=== PATIENT | female | born 2005 | race Caucasian/White ===

== ENCOUNTER 2025-02-05 10:15 | Outpatient (CLI) | payer OTHER, SELFPAY ==
--- NOTE | ~2025-02-05 | US_ITS ---
EXAMINATION: US OB <=14 wk fetus w TV DATE: 02/05/2025 12:26 INDICATION: Uncertain dating of during first trimester TECHNIQUE: Real-time pelvic ultrasound utilizing both a transvaginal and transabdominal probe was pe rformed. The interpreting radiologist was not present for the study. COMPARISON: None. FINDINGS: The uterus measures 7.9 x 5.2 x 3.4 cm. There is an intrauterine gestational sac. A yolk sac and fet al pole are identified. The crown rump length measures 2 mm, which correlates with an estimated gesta tional age of 5 weeks and 5 days. heart motion is identified measuring 83 beats per minute (bpm ) by M-mode Doppler. 8 x 5 x 5 mm hypoechoic region caudal margin of the gestational sac suspicious f or small subchronic hematoma. The right ovary measures 3.5 x 2.7 x 2.0 cm. The left ovary measures 3.9 x 2.6 x 2.3 cm. Vascular adrian w identified in both ovaries on color Doppler. There are also a few subcentimeter anechoic bilateral ovarian follicles. There is no free fluid in the pelvis. IMPRESSION: 1. Single living fetus with heart rate of 83 bpm. 2. Gestational age by ultrasound of 5 weeks 5 day(s) +/- 4 day(s) with ultrasound estimated date of delivery (SANKET) of 10/03/2025. 2. Possible small subchorionic hematoma. Reviewed, dictated and finalized at location A. IMPRESSION: 1. Single living fetus with heart rate of 83 bpm. 2. Gestational age by ultrasound of 5 weeks 5 day(s) +/- 4 day(s) with ultraso und estimated date of delivery (SANKET) of 10/03/2025. 2. Possible small subchorionic hematoma.
== END 2025-02-05 10:16 | disposition home or self-care (01) ==
PROVIDERS: PCP Emergency Medicine; Visit Provider Obstetrics & Gynecology Gynecology
DX: O26.859 Spotting complicating pregnancy, unspecified trimester (principal); Z3A.01 Less than 8 weeks gestation of pregnancy
CPT/HCPCS: 36415; 76801; 76817; 84702; 86850; 86900; 86901

== ENCOUNTER 2025-02-12 10:51 | Outpatient (CLI) | payer OTHER, SELFPAY ==
--- NOTE | ~2025-02-12 | US_ITS ---
FIRST TRIMESTER ULTRASOUND 02/12/2025 10:53 CDT Ordering provider: Mariluz Joseph MD History: . subchronic hematoma 1st trimester . Comparison: None. FINDINGS: INTRAUTERINE GESTATIONAL SAC: Present. YOLK SAC: Present. POLE: Present. Measures 0.8 cm equivalent to 6 weeks and 5 days. SANKET is October 03, 2025. heart rate is 122 bpm. Subchorionic hemorrhage is seen measuring 1 x 1 x 0.9 cm. GESTATIONAL AGE BY TODAY'S US: 6 weeks and 5 days. UTERUS: The uterus measures 9x 5.7x 4.1 cm. in length which is within normal limits. No myometrial ma sses. FREE FLUID: None. OVARIES: Normal in size with the right measuring 2.6x 2.6x 2.6 cm. and the left measuring 2.8x 2.3x 2 .3 cm. Doppler flow is demonstrated within both ovaries. ADNEXAL MASSES: None. IMPRESSION: Single live intrauterine of 6 weeks and 5 days. SANKET is October 03, 2025. Subchorionic hemorrhage is seen measuring 1 x 1 x 0.9 cm. Reviewed, dictated and finalized at location A. IMPRESSION: Single live intrauterine of 6 weeks and 5 days. SANKTE is October 03 026. Subchorionic hemorrhage is seen measuring 1 x 1 x 0.9 cm.
== END 2025-02-12 10:52 | disposition home or self-care (01) ==
LOC: GOSHIMG 10:52
PROVIDERS: PCP Obstetrics & Gynecology Gynecology; Visit Provider Obstetrics & Gynecology Gynecology
DX: O36.8910 Maternal care for other specified fetal problems, first trimester, not applicable or unspecified (principal); Z3A.00 Weeks of gestation of pregnancy not specified
CPT/HCPCS: 76801; 76817

== ENCOUNTER 2025-02-14 06:23 | Outpatient (RCR) | payer OTHER, SELFPAY ==
--- OUTSIDE RECORDS SUMMARY | 2025-02-12 14:34 | XMS_ITS | Continuity of Care Document ---
Author Organization [facility] Address [address] [place] [address] Phone Care Team Providers Care General Superintendent Name Role Phone Lopez Hodges MD Unavailable Unavailable Allergies, Adverse Reactions, Alerts Substance Reaction Status Criticality No Known Allergies Active No Inform ation Procedures Procedure Date PREV VISIT, NEW, AGE 18-39 OFFICE/OUTPATIENT VISIT, [facility] Advance Directives Directive Yes / No Effective Date File Name No Information Encounters Encounter Description Practice Location Reason(s) For Visit Diagnoses Date Provider Providers Copied on Encounter PREV VISIT, NEW, AGE 18-39 [facility], [address], [place], [id number], [place] tel:[phone] [facility] physical (chief complaint) Encounter for general adult medical exam w abnormal findingsOther specified epidermal thickeningMenorrhag ia [address]. [address], [address], [place], [id number] , [place]. tel:[phone] Family History Family Member Type Diagnosis Age At Onset Mother Problem Alive and well Brother Problem Alive and well Father Problem Alive and well Payers Payer name Insurance type Covered constitution party ID Authoriza tion(s) No Information Social History Type Description Quantity Date Captured Comments Alcohol Use Details No Caffeine Use Details Unknown Tobacco Use Status Current non-smoker Smoking Status Never smoker Non-Smoking Tobacco Use Details : No Details Available : No Details Available Sex Female Vital Signs Date / Time: Height Weight BMI Pulse Rate Blood Pressure Temperature Respiratory Rate Body Surface Area Head Circumference BMI percentile Pulse Ox Inhaled Ox 2:53 PM 67.00 in 167.40 lbs 26.2 2 kg/m eter (2) 77 /min 110/60 mm[Hg] 97.7 F 16 /min 84 Chief Complaint And Reason For Visit From encounter dated '11/30/2023 14:20'. physical (chief complaint). Description: Pt needs annual physical Pt is getting son and shewants to get a HALL CLEANER exam by HALL CLEANER soon .Pt has regular period without any HALL CLEANER issue. Pt also has chronic bilateral arm rough skin. Pt denies any itching. Pt denies any dry skin pt will get and she wants to see dermatology to make the skin better. Pt denies any other complaints. Pt also has heavy period. Plan Of Treatment Date Type Action Status Referral Ordered: Gynecology (related to Menorrhagia) ordered Referral Ordered: Dermatology (related to Other specified epidermal thickening) ordered Referral Ordered: Referrals: Gynecology. Evaluate and treat ordered Referral Ordered: Referrals: Dermatology. Evaluate and treat ordered History Of Present Illness Encounter Date Complaint History Of Prese nt Illness physical Pt needs annual physical Pt is getting son and she wants to get a HALL CLEANER exam by HALL CLEANER soon .Pt has regular period without any HALL CLEANER issue. Pt also has chronic bilateral arm rough skin. Pt denies any itching. Pt denies any dry skin pt will get and she wants to see dermatology to make the skin better. Pt denies any other complaints. Pt also has heavy period. Instructions Date Instruction Additional Infor mation No Information Assessments Type Assessment Date assessment Encounter for general adult medi harris exam w abnormal findings assessment Other specified epidermal thicke calista assessment Menorrhagia Mental Status Date Cognitive Assessment Orientation - [place] ed to time, place, person, situation.
--- OUTSIDE RECORDS SUMMARY | 2025-02-12 14:34 | XMS_ITS | Clinical Summary ---
Author Organization [facility] Address [address] [place] [address] Care Team Providers Care Drop Hammer Set Up Operator Name Role Phone Violeta Crowe MD Primary Care Provider [phone] Source Comments [facility],non-owned Affiliates and Associated Physician Practices is amultiple site organization consisting of ambulatory clinics and hospital sitesin [place], [place], [place] and [place]. This disclosure is being madepursuant to the Care Everywhere program and may not contain all information available regarding this patient. Last updated 18.[facility] Allergies No known active allergies Medications * Be aware that medications may not be up to date on this document. Alwaysverify current medications with the patient. triamcinolone acetonide (KENALOG) 0.1 % creamIndications :Flexural atopic dermatitis Apply to eczema twice daily as needed for flares. 30 days supply. 45 g 2 08/10/2019 Active Active Problems Problem Noted Date Diagnosed Date Displaced fracture of proxim al phalanx of right great toe with routine healing 02/22/2018 Closed fracture of proximal phalanx of right gre at toe 11/08/2017 Family History Medical History Relation Name Comments Asthma Neg Hx CVA Neg Hx Cancer - Breast Neg Hx Cancer - Other Neg Hx Cancer - Skin, Melanoma Neg Hx Cancer - Skin, Non Melanoma Neg Hx Eczema Neg Hx Hemophilia Neg Hx Psoriasis Neg Hx Social History Tobacco Use Types Packs/Day Years Used Date Smoking Tobacco: Never Smokeless Tobacco: Never Comments Unknown Sex and Gender Information Value Date Recorded Sex Assigned at Not on file Legal Sex Female 8:41 AM CDT Gender Identity Not on file Sexual Orientation Not on file Last Filed Vital Signs Vital Sign Reading Time Taken Comments Blood Pressure - - Pulse - - Temperature - - Respiratory Rate - - Oxygen Saturation - - Inhaled Oxygen Concentration - - Weight 83.3 kg (183 lb 10.3 oz) 11/08/2017 2:49 PM CDT Height 167.5 cm (5' 5.95) 11/08/2017 2:49 PM CD T Body Mass Index 29.69 11/08/2017 2:49 PM CDT Plan of Treatment Health Maintenance Due Date Last Done Comments HIV SCREENING 2019 HPV VACCINE (1 - 3-dose series) 2019 CHLAMYDIA/GONORRHEA SCREENING 2020 MENINGOCOCCAL (Group B) VACC INE SHARED DECISION-MAKING (1 of 2 - Standard) 2020 HEPATITIS C SCREENING 03/28/2022 DTAP/TDAP/TD VACCINES (1 - Tdap) 2023 HEPATITIS B VACCINE (1 of 3 - 19+ 3-dose series) 2023 COVID-19 VACCINE (1 - 2023-2 5 season) 2024 DEPRESSION SCREENING 08/16/2024 INFLUENZA VACCINE (Season Ended) 2025 ZOSTER VACCINE (1 of 2) 2054 HIB VACCINE Aged Out No longer eligi ble based on patient's age to complete this topic MENINGOCOCCAL GROUPS A/C/Y/W VACCINE Aged Out No longer eligible b ased on patient's age to complete this topic PNEUMOCOCCAL VACCINE Aged Out No long er eligible based on patient's age to complete this topic Insurance [facility] Care Teams Drop Hammer Set Up Operator Relationship Specialty Start Date End Date Violeta Crowe MD PCP - General Pediatrics 11/04/17
[2025-02-14] MEDS: RHO(D) IMMUNE GLOBULIN 300 MCG/2 ML SYRINGE IM (12:51)
== END 2025-02-14 06:30 | disposition home or self-care (01) ==
LOC: ANHOBOP 06:23
PROVIDERS: PCP Emergency Medicine; Visit Provider Obstetrics & Gynecology Gynecology
DX: Z29.13 Encounter for prophylactic Rho(D) immune globulin (principal)
CPT/HCPCS: 36415; 85461; 86850; 86900; 86901; 90384; 96372; 99199; J2790

== ENCOUNTER 2025-03-12 12:30 | Outpatient (CLI) | payer OTHER, SELFPAY ==
--- NOTE | ~2025-03-12 | US_ITS ---
EXAMINATION: US OB <= 14 weeks fetus DATE: 03/13/2025 11:43 CDT INDICATION: Subchorionic hemorrhage for follow-up COMPARISON: 02/12/2025 TECHNIQUE: Real-time transabdominal obstetric ultrasound. FINDINGS: The uterus measures 6.9 x 8.8 x 10.0 cm. A gestational sac is identified within the uterus, to the right of midline. No subchorionic hemorrhage is identified on the submitted static imaging. A pole is identified, with a crown-rump length that measures 4.2 cm, corresponding to an approx imate gestational age of 11 weeks and 1 day. cardiac activity is identified at a rate of 174 bpm. The right ovary measures 3.3 x 3.2 x 1.7 cm. Despite prolonged interrogation, the left ovary was not visualized Estimated date of delivery by ultrasound is 09/30/2025 IMPRESSION: Single intrauterine gestation with an approximate gestational age of 11 weeks and 1 day, with c ardiac activity identified. Interval resolution of the subchorionic hemorrhage detected on prior study. Reviewed, dictated and finalized at location A. IMPRESSION: Single intrauterine gestation with an approximate gestational age of 11 weeks a nd 1 day, with cardiac activity identified. Interval resolution of the subchorionic hemorrhage detected on prior study.
== END 2025-03-12 12:31 | disposition home or self-care (01) ==
PROVIDERS: PCP Obstetrics & Gynecology Gynecology; Visit Provider Obstetrics & Gynecology Gynecology
DX: O36.8910 Maternal care for other specified fetal problems, first trimester, not applicable or unspecified (principal); Z3A.11 11 weeks gestation of pregnancy
CPT/HCPCS: 76801

== ENCOUNTER 2025-05-14 08:30 | Outpatient (CLI) | payer OTHER, SELFPAY ==
--- NOTE | ~2025-05-14 | US_ITS ---
EXAMINATION: US OB /maternal detail DATE: 05/14/2025 09:00 INDICATION: Anatomy TECHNIQUE: Real-time transabdominal obstetric ultrasound. FINDINGS: There is a single living fetus in vertex presentation. The placenta is posterior without placenta previa. cardiac activity and movement is noted with a heart rate of 156 beats per minute. The amniotic fluid volume is subjectively within normal limits. The following biometric data were obtained: BPD: 4.56cm corresponds to gestational age 19 weeks 5 days. Head circumference: 16.90cm corresponds to gestational age 19 weeks 6 days. Abdominal circumference: 13.8cm corresponds to gestational age 19 weeks 2 days. Femur length: 3.18cm corresponds to gestational age 9 weeks days. Estimated weight: 299grams +/- 45grams.] IMPRESSION: 1. Single living fetus in vertex presentation with an estimated gestational age of 19 weeks and 4 days by inititial ultrasound. Appropriate interval growth. 2. Normal placenta. Reviewed, dictated and finalized at location Q. IMPRESSION: 1. Single living fetus in vertex presentation with an estimated gestational ag e of 19 weeks and 4 days by inititial ultrasound. Appropriate interval g rowth. 2. Normal placenta.
== END 2025-05-14 08:31 | disposition home or self-care (01) ==
PROVIDERS: PCP Obstetrics & Gynecology Gynecology; Visit Provider Obstetrics & Gynecology Gynecology
DX: Z36.9 Encounter for antenatal screening, unspecified (principal); Z3A.19 19 weeks gestation of pregnancy
CPT/HCPCS: 76805

== ENCOUNTER 2025-06-13 14:42 | Observation (INO) | payer OTHER, SELFPAY ==
--- NOTE | ~2025-06-13 | US_ITS ---
EXAMINATION: US renal BI, 06/13/2025 15:40 CDT HISTORY: pain Comparison: None Technique: Macedo-scale and color Doppler images were obtained. Findings: KIDNEYS: Renal cortices intact, no solid masses, cysts or calculi, no hydronephrosis. Right Kidney: Right kidney 13 x 6.4 x 5.9 cm, normal. Left Kidney: Left kidney 12.8 x 7.9 x 5.8 cm, normal. Bladder: The bladder is unremarkable. . Impression: No acute abnormality. Reviewed, dictated and finalized at location P. Impression: No acute abnormality.
[2025-06-13 15:16] VITALS: BP 109/52; PULSE 70
[2025-06-13 15:29] LABS: Add Urine Microscopic? NO; Appearance Urine Clear (Clear); Glucose Urine UA Negative (Negative); Leukocyte Esterase Ur Negative LEU/UL (Negative); Nitrate Urine Negative (Negative); Non Pathogenic Casts 0-2; Specific Grav Ur 1.009 (1.001-1.035)
[2025-06-13 15:31] VITALS: BP 112/68; PULSE 76
--- NOTE | 2025-06-13 15:31 | OBADM ---
This patient, Sayra Linares, admitted to the OB room OB Post 117 for observation. Patient/family oriented to hospital policies and general routines including ID bracelet, bed and alarms, visiting hours, pain management, procedures, bathroom and other care routines, personal items, smoking policy, room service/diet, and visiting hours. Patient/Family are encouraged to report perceived risks to care and to ask questions if they do not understand what they are told or what they should do.
[2025-06-13 15:46] VITALS: BP 114/58; PULSE 100
--- NOTE | 2025-06-13 17:03 | PC.NURSE ---
Dr. Joseph called to check on pt. Informed of U/S report. Pt's pain is down to a 2 currently. Pt didn't want to take the Tylenol due to the concern about Tylenol and increased risk of autism she has heard in the news. Order received for discharge. wants pt told that it is OK to take Tylenol and there is no medical evidence that Tylenol increases the risk of autism.
--- NOTE | 2025-06-15 09:04 | P.PNOB_ITS ---
OB - Triage/Final Diagnosis Visit Information Reason for evaluation: other (back pain) Comments/Additional reasons for admission: I have assessed the risk for this patient, Sayra Linares, and determined that she would benefit from observation care. Evaluation Laboratory results: Laboratory Tests 06/13/25 15:20 Urine Color Yellow Urine Appearance Clear Urine pH 7.5 Ur Specific [place] 1.009 Urine Protein Negative Urine Glucose (UA) Negative Urine Ketones 1+ H Ur Blood (Man) Non-hemolyzed trace H Urine Nitrate Negative Urine Bilirubin Negative Urine Urobilinogen 0.2 Ur Leukocyte Esterase Negative Urine RBC 0-2 Urine WBC 0-5 Ur Squamous Epith Cells None seen Urine Bacteria None seen Urine Casts 0-2
== END 2025-06-13 18:03 | disposition home or self-care (01) ==
PROVIDERS: Admitting Provider Obstetrics & Gynecology Gynecology; PCP Emergency Medicine; Visit Provider Obstetrics & Gynecology Gynecology
DX: O26.892 Other specified pregnancy related conditions, second trimester (principal); M54.9 Dorsalgia, unspecified; Z3A.24 24 weeks gestation of pregnancy
CPT/HCPCS: 76770; 81003; 87086; G0378; G0379

== ENCOUNTER 2025-07-17 19:38 | Emergency (ER) | payer OTHER, SELFPAY ==
[2025-07-17 19:44] VITALS: BP 114/57; PULSE 94; RESP 18; TEMP 36.3; O2SAT 100
--- NOTE | 2025-07-17 19:54 | ED_ITS ---
HPI - URI/Sore Throat General Chief Complaint: Upper Respiratory Infection Stated Complaint: SOB/Cough Time Seen by Provider: 07/17/25 19:40 Source: patient and RN notes reviewed Mode of arrival: ambulatory Limitations: no limitations History of Present Illness HPI Narrative: 20-year-old female patient presents to the [facility] complaining of upper respiratory symptoms for 3 days. Patient reports cough, intermittent shortness of breath, congestion, sore throat. Patient denies any other upper respiratory symptoms, chest pain, nausea vomiting, difficulty breathing, fevers body aches, chills, abdominal pain, or other symptoms. Patient is currently 29 weeks . Denies any complications. Patient is a taking [id number] to help with symptoms. Patient denies any other significant [facility] medical history. Related Data Home Medications ?Medication ?Instructions ?Recorded ?Confirmed ?Last Taken ?Type aspirin 81 mg tablet 81 mg PO DAILY 06/13/2510/1006/12/25 History ergocalciferol (vitamin D2) 1,250 50,000 unit PO WEEKL Y 06/13/25 07/17/25 06/06/25 History mcg (50,000 unit) capsule vit no.95-ferrous 1 tablet PO DAILY 06/13/25 07/17/25 06/12/25 History fumarate 28 mg-folic acid 800 mcg tablet () Allergies Allergy/AdvReac Type Severity Reaction Status Date / Time No Known Allergies Allergy Unknown Verified 07/17/25 19:43 Review of Systems Review of Systems: CONSTITUTIONAL: Denies fever, chills, or sweats. EYES: Denies visual changes, redness, or discharge. ENT: Denies rhinorrhea, or otalgia. Positive for congestion and sore throat CARDIOVASCULAR: Denies chest pain, palpitations, or edema. RESPIRATORY: Positive for cough and dyspnea. GASTROINTESTINAL: Denies abdominal pain, nausea, vomiting, or diarrhea. GENITOURINARY: Denies dysuria, vaginal bleeding, or hematuria. SKIN: Denies rash or itching. MUSCULOSKELETAL: Denies back pain, joint pain, or myalgia. NEUROLOGIC: Denies headache, numbness, or weakness. PSYCHIATRIC: Denies anxiety or depression. All other systems reviewed are negative, except as documented in HPI. [facility] Social History Social History Lack of Transportation: No Lack of Food: Never True Current Housing: I Have Housing Concerned About Future Housing: No Difficulty Paying Gas/Electric Bills: No Difficulty Paying for Meds: No Currently Unemployed: No Education: Don't Know Difficulty w/ Childcare or Family Care: No Comments At the time of my signature, I reviewed and agree with the nursing past medical, surgical, social, and family history. There is no relevant family history pertinent to the patient complaint. Exam Narrative: GENERAL: This is a well-nourished, well-developed adult, in no apparent distress. They are non ill-appearing, nontoxic appearing. Patient's . HEAD: normocephalic, atraumatic. EYES: Sclera clear/white. Conjunctiva normal. Vision is grossly intact. Extraocular movements intact EARS: External ears normal, auditory canals clear and without drainage, TMs normal without perforation. Hearing grossly intact. NOSE: External nose normal with no obvious nasal discharge, nasal turbinates erythema, no swelling, no rhinorrhea. THROAT: Mucous membranes moist, posterior pharynx erythemic without swelling. Uvula midline. Postnasal drip present. NECK: Neck supple, mild cervical lymphadenopathy, no masses or thyromegaly. CARDIOVASCULAR: Regular rate and rhythm without murmurs, gallops, or rubs. RESPIRATORY: Clear to auscultation. Breath sounds equal bilaterally. No wheezes, rales, or rhonchi. Respiratory exam SKIN: warm, Dry, intact with no suspicious lesions or rash, good texture and turgor. NEURO: awake, alert, and oriented to person, place and time. There were no obvious focal neurologic abnormalities. EXTREMITIES: No joint tenderness, effusion, or edema noted. BACK: Nontender without deformity. Course Course Level of Care: Express Care Visit Vital Signs Vital signs: Vital Signs Oxygen Delivery Room Air 07/17/25 19:40 Temperature 97.4 F L 07/17/25 19:44 Pulse Rate 94 07/17/25 19:44 Respiratory Rate 18 07/17/25 19:44 Blood Pressure 114/57 L 07/17/25 19:44 Pulse Oximetry 100 07/17/25 19:44 Oxygen Delivery Room Air 07/17/25 19:40 [facility] MDM Narrative Medical decision making narrative: Rapid COVID, flu, strep are are negative. Throat culture is pending. Likely viral upper respiratory infection. Discussed supportive care. PERC score 0. Discussed physical exam findings. Advised supportive measures and signs/symptoms to go to the ER. Pt is appropriate for outpt treatment and f/u. Differential Diagnosis Differential Diagnosis: Differential diagnostic considerations for upper respiratory infection include upper respiratory infection, croup, otitis media, sinusitis, viral infection, bronchitis, influenza, pharyngitis, strep, uvulitis. Lab Data MDM Lab Attestation statement: I personally reviewed the patient's lab results. Labs: Lab Results 07/17/25 Range/Units 20:07 POC Influenza A Ag Negative (Negative) POC Influenza B Ag Negative (Negative) POC SARS CoV-2 Ag Negative (Negative) POC Grp A Strep Screen Negative (Negative) Critical Care Time Critical Care Time Critical Care Time: No Discharge Plan Discharge Clinical Impression: Upper respiratory infection Patient Disposition: Home Condition: Stable Instructions: Antibiotic Form, Upper Respiratory Infection (ED) Additional Instructions: Rapid COVID, flu, strep were negative today. A throat culture is pending if it is positive for strep you will be contacted started on appropriate antibiotics. Viral illness may last between 7-14 days; antibiotics do not cure viral illness and are NOT recommended at this time. Recommend antihistamine such Claritin or Zyrtec for congestion. Also, recommend symptomatic treatment includes: rest, fluids, and increase humidity of the air at home. Tylenol as needed for pain or fevers. Follow instructions the bottle Please schedule a follow-up visit with your personal physician for further evaluation and treatment within 3-5days. Go to the ER if you develops any abdominal pain, chest pain, worsening shortness of breath, able to talk in full sentences, rapid breathing, rapid heart rate, difficulty breathing, wheezing, vomiting, uncontrolled fevers, worsening symptoms, or any serious concerns. Patient Language: Belarusian Prescriptions: No Action ergocalciferol (vitamin D2) 1,250 mcg (50,000 unit) capsule 50,000 unit PO WEEKLY PNV no.95-ferrous fumarate-FA [] 28 mg iron- 800 mcg tablet 1 tablet PO DAILY aspirin 81 mg tablet 81 mg PO DAILY Follow-up/Referrals: PHYSICIAN,GROUND WATER TECHNICIAN [Primary Care Provider, Internal Medicine] Time of Disposition: 20:12
[2025-07-17 20:09] LABS: EDCOVIDSCREEN Negative (Negative); EDINFLUASCREEN Negative (Negative); EDINFLUBSCREEN Negative (Negative); EDSTREPNEGPOS1 Negative (Negative)
== END 2025-07-17 20:15 | disposition home or self-care (01) ==
DX: O99.513 Diseases of the respiratory system complicating pregnancy, third trimester (principal); J06.9 Acute upper respiratory infection, unspecified; Z3A.29 29 weeks gestation of pregnancy; Z20.822 Contact with and (suspected) exposure to COVID-19; Z79.82 Long term (current) use of aspirin
CPT/HCPCS: 87081; 87426; 87804; 87880; 99213; G0463

== ENCOUNTER 2025-07-26 18:17 | Outpatient (CLI) | payer OTHER, SELFPAY ==
[2025-07-26 18:44] VITALS: BP 117/65; PULSE 90
[2025-07-26 19:00] VITALS: BP 111/60; PULSE 82
[2025-07-26 19:25] LABS: OBXCEM ROM Plus Negative (Negative)
== END 2025-07-26 19:23 | disposition home or self-care (01) ==
LOC: ANHOBOP 18:24 → ANHOBPP 18:26
PROVIDERS: Obstetrics & Gynecology; PCP Emergency Medicine; Visit Provider Advanced Practice Midwife
DX: O42.90 Premature rupture of membranes, unspecified as to length of time between rupture and onset of labor, unspecified weeks of gestation (principal); Z3A.00 Weeks of gestation of pregnancy not specified
CPT/HCPCS: 59025; 84112; 99199